=== PATIENT | male | born 1930 | race Caucasian/White ===

== ENCOUNTER 2016-12-17 11:17 | Emergency (ER) | payer MEDICARE, BC ==
[2016-12-17 12:42] VITALS: BP 153/79
--- NOTE | 2016-12-17 13:39 | EDM.PDOC ---
ED HPI GENERAL MEDICAL PROBLEM - General Chief Complaint: Laceration Time Seen by Provider: 12/17/16 11:45 Source of Information: Reports: Patient History Limitations: Reports: No Limitations - History of Present Illness INITIAL COMMENTS - FREE TEXT/NARRATIVE: This is an 86yo M here for a left pinky finger laceration or injury. Patient states the left distal 5th finger was caught in the truck bed when they were unloading. He is on coumadin and had difficulty stopping the bleeding. He denies any other concerns. Onset: Sudden Duration: Resolved Prior to Arrival Severity: Mild Associated Symptoms: Reports: No Other Symptoms Left Pinkie Finger Pain Score (Numeric/FACES): 4 - Related Data Allergies Allergy/AdvReac Type Severity Reaction Status Date / Time No Known Allergies Allergy Verified 03/25/13 15:36 Home Meds: Home Meds Aspirin [Halfprin] 81 PO DAILY 03/25/13 [History] Calcitriol [Rocaltrol] 0.25 mcg PO DAILY 03/25/13 [History] Clopidogrel [Plavix] 75 mg PO DAILY 03/25/13 [History] Finasteride [Proscar] 5 mg PO DAILY 03/25/13 [History] Isosorbide Mononitrate [Imdur] 30 mg PO DAILY 03/25/13 [History] Nitroglycerin 0.4 mg SL PRN 03/25/13 [History] Sotalol [Betapace] 120 mg PO DAILY 03/25/13 [History] Warfarin [Coumadin] 2.5 mg PO DAILY 03/25/13 [History] atorvaSTATin [Lipitor] 20 mg PO BEDTIME 03/25/13 [History] Past Medical History HEENT History: Reports: Cataract, Macular Degeneration Cardiovascular History: Reports: High Cholesterol, Hypertension, Pacemaker Genitourinary History: Reports: BPH Neurological History: Reports: Other (See Below) Other Neuro History: restless leg syndrome Endocrine/Metabolic History: Reports: Other (See Below) Other Endocrine/Metabolic History: osteoarthritis - Past Surgical History HEENT Surgical History: Reports: Cataract Surgery, Tonsillectomy Cardiovascular Surgical History: Reports: Coronary Artery Stent GI Surgical History: Reports: Colonoscopy, Other (See Below) Other GI Surgeries/Procedures: hemorrhoidecomy Social & Family History - Recreational Drug Use Recreational Drug Use: No ED ROS GENERAL - Review of Systems Review Of Systems: ROS reveals no pertinent complaints other than HPI. ED EXAM, SKIN/RASH Exam: See Below Exam Limited By: No Limitations General Appearance: Alert, WD/WN, No Apparent Distress Ears: Normal External Exam Head: Atraumatic, Normocephalic Neck: Normal Inspection Respiratory/Chest: No Respiratory Distress, Lungs Clear, Normal Breath Sounds Cardiovascular: Normal Peripheral Pulses, Regular Rate, Rhythm Peripheral Pulses: 2+: Radial (L), Radial (R) GI/Abdominal: Normal Bowel Sounds Extremities: Other (small lacerations of the medial and lateral distal 5th left phalange) Psychiatric: Normal Affect, Normal Mood Skin: Wound/Incision ED SKIN PROCEDURES - Laceration/Wound Repair Left Finger Lac/wound length in cm: 0.5 Appearance: Irregular Distal NVT: neuro & vascular intact Skin prep: providone-iodine (betadine) Closed with: dermabond Left Medial Finger Lac/wound length in cm: 0.3 Appearance: Linear Distal NVT: neuro & vascular intact Skin prep: providone-iodine (betadine) Closed with: dermabond Course - Vital Signs Last Recorded V/S: Last Vital Signs Temp 36.9 C 12/17/16 11:30 Pulse 56 L 12/17/16 11:30 Resp 18 12/17/16 11:30 BP 153/79 H 12/17/16 11:30 Pulse Ox 98 12/17/16 11:30 Departure - Departure Time of Disposition: 11:50 Disposition: Home, Self-Care 01 Condition: good Clinical Impression: Laceration - Discharge Information Instructions: Laceration Care, Adult, [id number] Referrals: PCP,Unknown [Primary Care Provider] - Forms: ED Department Discharge Additional Instructions: Allow the glue to fall off on it's own. You may shower, but pat the wound dry. Do not rub. Monitor for any signs of infection-icky drainage, redness, increased pain, or fever. - Problem List Review Problem List Initiated/Reviewed/Updated: Yes - Assessment/Plan Plan: F/u if bleeding returns or any dehiscence. Counseled on wound care and f/u as needed.
== END 2016-12-17 12:05 | disposition home or self-care (01) ==
LOC: LB.ED 11:17
DX: S61.217A Laceration without foreign body of left little finger without damage to nail, initial encounter (principal); E78.00 Pure hypercholesterolemia, unspecified; I10 Essential (primary) hypertension; Z79.899 Other long term (current) drug therapy; Z79.01 Long term (current) use of anticoagulants; Z98.49 Cataract extraction status, unspecified eye; Z98.890 Other specified postprocedural states; Z79.82 Long term (current) use of aspirin; M19.90 Unspecified osteoarthritis, unspecified site; W23.0XXA Caught, crushed, jammed, or pinched between moving objects, initial encounter
CPT/HCPCS: 12001; 99282; 99282-25